=== PATIENT | female | born 1945 | race Caucasian/White ===

== ENCOUNTER 2024-09-04 15:45 | Inpatient (IN) | payer MEDICARE ==
[~2024-09-04] VITALS: Ht 175.3 cm; Wt 113.4 kg
[2024-09-04 16:39] LABS: BASOPHILS # (AUTO) 0.1 X10'3 (0-0.2); BASOPHILS % (AUTO) 0.9 % (0-1); EOSINOPHILS # (AUTO) 0.1 X10'3 (0-0.9); EOSINOPHILS % (AUTO) 1.2 % (0-6); HEMATOCRIT 37.5 % (35.0-45.0); HEMOGLOBIN 11.9 g/dl (12.0-16.0); LYMPHOCYTES # (AUTO) 0.9 X10'3 (1.1-4.8); LYMPHOCYTES % (AUTO) 10.1 % (21-51); MEAN CORPUSCULAR HEMOGLOBIN 25.6 PG (27.0-31.0); MEAN CORPUSCULAR HGB CONC 31.7 g/dL (33.0-36.5); MEAN CORPUSCULAR VOLUME 80.9 FL (78-98); MEAN PLATELET VOLUME 9.3 FL (7.4-10.4); MONOCYTES # (AUTO) 0.6 X10'3 (0-0.9); MONOCYTES % (AUTO) 7.2 % (2-12); NEUTROPHILS % (AUTO) 80.6 % (42-75); PLATELET COUNT 256 X10'3 (140-440); RED BLOOD COUNT 4.64 X10'6 (4.20-5.60); RED CELL DISTRIBUTION WIDTH 21.1 % (11.5-14.5); WHITE BLOOD COUNT 8.8 X10'3 (4.5-11.0)
[2024-09-04 16:44] LABS: APTT 41 SECONDS (22-32); INR 3.1 INR; PROTHROMBIN TIME 29.5 SECONDS (9.0-12.0)
[2024-09-04 16:46] LABS: ALANINE AMINOTRANSFERASE 27 U/L (12-78); ALBUMIN 3.4 G/DL (3.4-5.0); ALBUMIN/GLOBULIN RATIO 0.8 (1.1-1.5); ANION GAP 8 (8-16); ASPARTATE AMINO TRANSFERASE 19 U/L (10-37); BLOOD UREA NITROGEN 26 MG/DL (7-18); BUN/CREATININE RATIO 22.8 (10.0-20.0); CALCIUM 8.8 MG/DL (8.5-10.1); CHLORIDE 104 MMOL/L (99-107); CREATININE 1.14 MG/DL (0.40-0.90); GLUCOSE 104 MG/DL (70-104); POTASSIUM 3.8 MMOL/L (3.5-5.1); SODIUM 139 MMOL/L (135-145); TOTAL PROTEIN 7.8 G/DL (6.4-8.2); eCRCL 43 ML/MIN; eGFR 46 ML/MIN
[2024-09-04 16:47] LABS: ALKALINE PHOSPHATASE 145 IU/L (46-116)
[2024-09-04 16:53] LABS: PRO BRAIN NATRIURETIC PEPTIDE 702 PG/ML (0-450)
[2024-09-04 17:04] LABS: ANISOCYTOSIS 3+; ELLIPTOCYTES FEW; PLATELET ESTIMATE NORMAL; STOMATOCYTES FEW
[2024-09-04] MEDS ORDERED: acetaminophen 325mg tablet PO PRN ×2 (18:05)
[2024-09-04] MEDS ORDERED: magnesium sulf-water 2g/50mL 50 ML IV PRN (18:05)
[2024-09-04] MEDS ORDERED: magnesium sulf-water 4G/100mL 100 ML IV PRN (18:05)
[2024-09-04] MEDS ORDERED: magnesium hydroxide 30ml (MOM) UD suspension PO PRN (18:05)
[2024-09-04] MEDS ORDERED: potassium Cl 20 mEq SR tablet PO PRN (18:05)
[2024-09-04] MEDS ORDERED: mag hydrox/Alum hydrox/simeth 30ml oral suspension PO PRN (18:05)
[2024-09-04] MEDS ORDERED: ondansetron/PF 4mg/2ml inj IV PRN (18:05)
[2024-09-04] MEDS: morphine 2 MG/ML inj. syringe IV ONE (18:06)
[2024-09-04] MEDS: furosemide 10 MG/1 ML 10ml inj IV ONE (18:07)
[2024-09-04] MEDS: PERFLUTREN PROTEIN-A MICROSPHR (Optison) 0.22 MG/ML 3ML VIAL IV ONE (18:25)
[2024-09-04] MEDS ORDERED: iohexol 350MG/ML 100ml bottle IV ONE (19:02)
[2024-09-04 19:34] LABS: URINE AMPHETAMINE SCREEN NEGATIVE (Neg); URINE BARBITUATE SCREEN NEGATIVE (Neg); URINE BENZODIAZEPINES SCREEN NEGATIVE (Neg); URINE CANNABINOID SCREEN NEGATIVE (Neg); URINE COCAINE SCREEN NEGATIVE (Neg); URINE METHADONE SCREEN NEGATIVE (Neg); URINE OPIATE SCREEN POSITIVE (Neg); URINE PHENCYCLIDINE SCREEN NEGATIVE (Neg)
[2024-09-04 19:36] LABS: CHOL/HDL RATIO 3.8 (0.00-4.99); CHOLESTEROL 182 MG/DL (0-200); HDL CHOLESTEROL 48 MG/DL (35-60); LDL CHOLESTEROL 107 MG/DL (50-100); TRIGLYCERIDES 96 MG/DL (20-135)
[2024-09-04 19:38] LABS: HEMOGLOBIN A1C 6.9 % (4.5-6.2)
[2024-09-04] MEDS: K and/or MAG REPLACEMENT MC SCH (20:00)
[2024-09-04] MEDS ORDERED: apixaban 5mg tablet PO SCH (20:00)
[2024-09-04] MEDS: docusate sod 100mg capsule PO SCH (20:00)
[2024-09-04] MEDS: furosemide 40mg/4ml inj IV SCH (21:01)
[2024-09-04] MEDS: CefTRIAXone 2gm/D5W 50ml BAG 50 ML IV SCH (21:03)
[2024-09-04] MEDS: lisinopril 5mg tablet PO SCH (21:04)
[2024-09-05 02:55] LABS: BASOPHILS # (AUTO) 0.1 X10'3 (0-0.2); BASOPHILS % (AUTO) 1.2 % (0-1); EOSINOPHILS # (AUTO) 0.1 X10'3 (0-0.9); EOSINOPHILS % (AUTO) 1.4 % (0-6); HEMOGLOBIN 12.3 g/dl (12.0-16.0); LYMPHOCYTES % (AUTO) 10.6 % (21-51); MEAN CORPUSCULAR HEMOGLOBIN 25.2 PG (27.0-31.0); MEAN CORPUSCULAR HGB CONC 31.4 g/dL (33.0-36.5); MEAN CORPUSCULAR VOLUME 80.4 FL (78-98); MEAN PLATELET VOLUME 8.9 FL (7.4-10.4); MONOCYTES # (AUTO) 0.7 X10'3 (0-0.9); MONOCYTES % (AUTO) 7.4 % (2-12); NEUTROPHILS # (AUTO) 7.2 X10'3 (1.8-7.7); NEUTROPHILS % (AUTO) 79.4 % (42-75); PLATELET COUNT 245 X10'3 (140-440); RED BLOOD COUNT 4.86 X10'6 (4.20-5.60); RED CELL DISTRIBUTION WIDTH 20.6 % (11.5-14.5); WHITE BLOOD COUNT 9.1 X10'3 (4.5-11.0)
[2024-09-05 03:14] LABS: ALANINE AMINOTRANSFERASE 24 U/L (12-78); ALBUMIN 3.4 G/DL (3.4-5.0); ALBUMIN/GLOBULIN RATIO 0.8 (1.1-1.5); ALKALINE PHOSPHATASE 137 IU/L (46-116); ANION GAP 5 (8-16); ASPARTATE AMINO TRANSFERASE 24 U/L (10-37); BILIRUBIN,TOTAL 0.8 MG/DL (0.1-1.0); BLOOD UREA NITROGEN 24 MG/DL (7-18); BUN/CREATININE RATIO 19.7 (10.0-20.0); CALCIUM 8.7 MG/DL (8.5-10.1); CHLORIDE 100 MMOL/L (99-107); CREATININE 1.22 MG/DL (0.40-0.90); GLUCOSE 119 MG/DL (70-104); POTASSIUM 3.2 MMOL/L (3.5-5.1); SODIUM 138 MMOL/L (135-145); TOTAL CARBON DIOXIDE 32.6 MMOL/L (24-32); TOTAL PROTEIN 7.9 G/DL (6.4-8.2); eCRCL 40 ML/MIN; eGFR 43 ML/MIN
[2024-09-05 05:18] LABS: ANISOCYTOSIS 3+; ELLIPTOCYTES FEW; HYPOCHROMASIA 1+; PLATELET ESTIMATE NORMAL; POLYCHROMASIA 1+; STOMATOCYTES FEW
[2024-09-05] MEDS ORDERED: DEXTROSE 15 GM of carb/4 tabs (each vial/BOTTLE has 4 tablets) PO PRN ×2 (07:15)
[2024-09-05] MEDS ORDERED: dextrose 50%-water 50ml dispensing syringe IV PRN ×2 (07:15)
[2024-09-05] MEDS ORDERED: glucagon, human recombinant 1mg kit SUBCUT PRN (07:15)
[2024-09-05] MEDS ORDERED: metoprolol succinate 25mg (24-HOUR) SR. Tablet PO SCH (08:00)
[2024-09-05] MEDS: metoprolol succinate 25mg (24-HOUR) SR. Tablet PO SCH (08:22)
[2024-09-05] MEDS: lisinopril 5mg tablet PO SCH (08:29)
[2024-09-05] MEDS: potassium Cl 40MEQ/1/2NS 520ml 520 ML IV PRN (10:35)
[2024-09-05 13:13] LABS: INR 2.5 INR; PROTHROMBIN TIME 24.2 SECONDS (9.0-12.0)
[2024-09-05 15:00] VITALS: BP 142/64; PULSE 73; RESP 15; TEMP 98.6; O2SAT 99
[2024-09-05] MEDS: morphine 2 MG/ML inj. syringe IV PRN (17:27)
[2024-09-05 18:00] VITALS: BP 147/89; PULSE 76; RESP 18; TEMP 97.6; O2SAT 98
[2024-09-05 20:00] VITALS: RESP 18; O2SAT 98
[2024-09-05] MEDS: warfarin 2.5mg tablet PO ONE (21:46)
[2024-09-05 22:00] VITALS: BP 118/74; PULSE 75; RESP 16; TEMP 97.1; O2SAT 98
[2024-09-06] VITALS (9 sets, daily range): BP systolic 103–157; BP diastolic 58–79; PULSE 75–84; RESP 10–20; TEMP 97–98.2; O2SAT 96–99
[2024-09-06 06:57] LABS: INR 2.2 INR; PROTHROMBIN TIME 21.5 SECONDS (9.0-12.0)
[2024-09-06 07:19] LABS: ALANINE AMINOTRANSFERASE 18 U/L (12-78); ALBUMIN/GLOBULIN RATIO 0.7 (1.1-1.5); ALKALINE PHOSPHATASE 122 IU/L (46-116); ANION GAP 8 (8-16); ASPARTATE AMINO TRANSFERASE 21 U/L (10-37); BILIRUBIN,TOTAL 0.8 MG/DL (0.1-1.0); BLOOD UREA NITROGEN 23 MG/DL (7-18); BUN/CREATININE RATIO 20.2 (10.0-20.0); CALCIUM 8.6 MG/DL (8.5-10.1); CHLORIDE 98 MMOL/L (99-107); CREATININE 1.14 MG/DL (0.40-0.90); GLUCOSE 120 MG/DL (70-104); MAGNESIUM 1.9 MG/DL (1.5-2.4); POTASSIUM 3.1 MMOL/L (3.5-5.1); SODIUM 139 MMOL/L (135-145); TOTAL CARBON DIOXIDE 33.1 MMOL/L (24-32); TOTAL PROTEIN 7.3 G/DL (6.4-8.2); eCRCL 43 ML/MIN; eGFR 46 ML/MIN
[2024-09-06 07:20] LABS: BASOPHILS # (AUTO) 0.1 X10'3 (0-0.2); BASOPHILS % (AUTO) 0.5 % (0-1); EOSINOPHILS # (AUTO) 0.1 X10'3 (0-0.9); EOSINOPHILS % (AUTO) 0.6 % (0-6); HEMATOCRIT 38.9 % (35.0-45.0); HEMOGLOBIN 12.1 g/dl (12.0-16.0); LYMPHOCYTES # (AUTO) 0.6 X10'3 (1.1-4.8); LYMPHOCYTES % (AUTO) 4.4 % (21-51); MEAN CORPUSCULAR HEMOGLOBIN 24.9 PG (27.0-31.0); MEAN CORPUSCULAR HGB CONC 31.2 g/dL (33.0-36.5); MEAN CORPUSCULAR VOLUME 79.9 FL (78-98); MEAN PLATELET VOLUME 9.5 FL (7.4-10.4); MONOCYTES # (AUTO) 0.7 X10'3 (0-0.9); MONOCYTES % (AUTO) 5.2 % (2-12); NEUTROPHILS # (AUTO) 11.3 X10'3 (1.8-7.7); NEUTROPHILS % (AUTO) 89.3 % (42-75); PLATELET COUNT 217 X10'3 (140-440); RED BLOOD COUNT 4.87 X10'6 (4.20-5.60); RED CELL DISTRIBUTION WIDTH 20.6 % (11.5-14.5); WHITE BLOOD COUNT 12.7 X10'3 (4.5-11.0)
[2024-09-06] MEDS: potassium Cl 20 mEq SR tablet PO PRN (08:22)
[2024-09-06] MEDS: furosemide 40mg/4ml inj IV SCH (16:00)
[2024-09-06] MEDS: spironolactone 25 MG tablet PO SCH (17:39)
[2024-09-06] MEDS: EMPAGLIFLOZIN 10 MG TABLET PO SCH (17:40)
[2024-09-06] MEDS ORDERED: PREG150C47 PO (19:16)
[2024-09-06] MEDS ORDERED: ROSU10TA72 PO (19:16)
[2024-09-06] MEDS ORDERED: DULO60CA65 PO (19:16)
[2024-09-06] MEDS ORDERED: METO-395 PO (19:16)
[2024-09-06] MEDS ORDERED: WARF-55 (19:16)
[2024-09-06] MEDS ORDERED: AMLO2.5T5 PO (19:16)
[2024-09-06] MEDS ORDERED: LEVO75TA7 PO (19:16)
[2024-09-06] MEDS ORDERED: FURO-149 PO (19:18)
[2024-09-06] MEDS: atorvastatin 20mg tablet PO SCH (20:18)
[2024-09-06] MEDS: warfarin 3mg tablet PO ONE (20:19)
[2024-09-07] VITALS (8 sets, daily range): BP systolic 112–143; BP diastolic 51–75; PULSE 79–95; RESP 12–18; TEMP 96.8–98.8; O2SAT 92–97
[2024-09-07 05:59] LABS: BASOPHILS # (AUTO) 0.1 X10'3 (0-0.2); BASOPHILS % (AUTO) 0.5 % (0-1); EOSINOPHILS # (AUTO) 0.1 X10'3 (0-0.9); EOSINOPHILS % (AUTO) 0.8 % (0-6); HEMATOCRIT 39.9 % (35.0-45.0); HEMOGLOBIN 12.4 g/dl (12.0-16.0); LYMPHOCYTES # (AUTO) 0.8 X10'3 (1.1-4.8); LYMPHOCYTES % (AUTO) 7.4 % (21-51); MEAN CORPUSCULAR HEMOGLOBIN 24.8 PG (27.0-31.0); MEAN CORPUSCULAR HGB CONC 31.1 g/dL (33.0-36.5); MEAN CORPUSCULAR VOLUME 79.8 FL (78-98); MEAN PLATELET VOLUME 8.8 FL (7.4-10.4); MONOCYTES # (AUTO) 0.7 X10'3 (0-0.9); MONOCYTES % (AUTO) 5.9 % (2-12); NEUTROPHILS # (AUTO) 9.4 X10'3 (1.8-7.7); NEUTROPHILS % (AUTO) 85.4 % (42-75); PLATELET COUNT 240 X10'3 (140-440); RED CELL DISTRIBUTION WIDTH 20.3 % (11.5-14.5); WHITE BLOOD COUNT 11.1 X10'3 (4.5-11.0)
[2024-09-07 06:12] LABS: PROTHROMBIN TIME 19.8 SECONDS (9.0-12.0)
[2024-09-07 06:14] LABS: ANION GAP 5 (8-16); BILIRUBIN,TOTAL 0.7 MG/DL (0.1-1.0); BLOOD UREA NITROGEN 26 MG/DL (7-18); BUN/CREATININE RATIO 20.5 (10.0-20.0); CALCIUM 8.6 MG/DL (8.5-10.1); CHLORIDE 98 MMOL/L (99-107); CREATININE 1.27 MG/DL (0.40-0.90); GLUCOSE 124 MG/DL (70-104); MAGNESIUM 1.7 MG/DL (1.5-2.4); POTASSIUM 3.2 MMOL/L (3.5-5.1); SODIUM 141 MMOL/L (135-145); TOTAL CARBON DIOXIDE 38.1 MMOL/L (24-32); eCRCL 38 ML/MIN; eGFR 41 ML/MIN
[2024-09-07 06:15] LABS: ALANINE AMINOTRANSFERASE 13 U/L (12-78); ALBUMIN 3.1 G/DL (3.4-5.0); ALBUMIN/GLOBULIN RATIO 0.7 (1.1-1.5); ALKALINE PHOSPHATASE 121 IU/L (46-116); ASPARTATE AMINO TRANSFERASE 16 U/L (10-37); TOTAL PROTEIN 7.4 G/DL (6.4-8.2)
[2024-09-07] MEDS: morphine 2 MG/ML inj. syringe IV PRN (07:32)
[2024-09-07 07:52] LABS: ANISOCYTOSIS 3+; MICROCYTOSIS 1+; PLATELET ESTIMATE NORMAL
[2024-09-07 07:56] LABS: HYPOCHROMASIA 1+
[2024-09-07] MEDS: pregabalin 75mg capsule PO SCH (12:08)
[2024-09-07] MEDS ORDERED: metoprolol succinate 25mg (24-HOUR) SR. Tablet PO SCH (14:00)
[2024-09-07] MEDS: warfarin 5mg tablet PO ONE (21:40)
[2024-09-08 02:00] VITALS: BP 139/56; PULSE 85; RESP 12; TEMP 97.1; O2SAT 98
[2024-09-08 06:00] VITALS: BP 153/66; PULSE 71; RESP 17; TEMP 97; O2SAT 94
[2024-09-08 07:07] LABS: BASOPHILS # (AUTO) 0.1 X10'3 (0-0.2); BASOPHILS % (AUTO) 0.6 % (0-1); EOSINOPHILS # (AUTO) 0.1 X10'3 (0-0.9); EOSINOPHILS % (AUTO) 1.2 % (0-6); HEMATOCRIT 42.3 % (35.0-45.0); HEMOGLOBIN 13.3 g/dl (12.0-16.0); LYMPHOCYTES # (AUTO) 1.1 X10'3 (1.1-4.8); LYMPHOCYTES % (AUTO) 10.4 % (21-51); MEAN CORPUSCULAR HEMOGLOBIN 24.9 PG (27.0-31.0); MEAN CORPUSCULAR HGB CONC 31.5 g/dL (33.0-36.5); MEAN CORPUSCULAR VOLUME 79.1 FL (78-98); MONOCYTES # (AUTO) 0.8 X10'3 (0-0.9); MONOCYTES % (AUTO) 7.1 % (2-12); NEUTROPHILS # (AUTO) 8.6 X10'3 (1.8-7.7); NEUTROPHILS % (AUTO) 80.7 % (42-75); PLATELET COUNT 245 X10'3 (140-440); RED BLOOD COUNT 5.34 X10'6 (4.20-5.60); RED CELL DISTRIBUTION WIDTH 21.3 % (11.5-14.5); WHITE BLOOD COUNT 10.7 X10'3 (4.5-11.0)
[2024-09-08 07:13] LABS: INR 1.9 INR
[2024-09-08 08:00] VITALS: RESP 17; O2SAT 94
[2024-09-08] MEDS ORDERED: non-formulary drug (Rosuvastatin Calcium 1 TAB) PO SCH (08:00)
[2024-09-08] MEDS: amLODIPine 2.5mg tablet PO SCH (08:43)
[2024-09-08] MEDS: levoTHYROXINE 75mcg tablet PO SCH (08:44)
[2024-09-08] MEDS: metoprolol succinate 25mg (24-HOUR) SR. Tablet PO SCH (08:56)
[2024-09-08] MEDS: duloxetine 30mg CAPSULE.DR PO SCH (09:08)
[2024-09-08 09:28] LABS: ALANINE AMINOTRANSFERASE 14 U/L (12-78); ALBUMIN 3.2 G/DL (3.4-5.0); ALBUMIN/GLOBULIN RATIO 0.6 (1.1-1.5); ALKALINE PHOSPHATASE 124 IU/L (46-116); ANION GAP 7 (8-16); BILIRUBIN,TOTAL 0.8 MG/DL (0.1-1.0); BLOOD UREA NITROGEN 37 MG/DL (7-18); BUN/CREATININE RATIO 21.9 (10.0-20.0); CALCIUM 9.1 MG/DL (8.5-10.1); CHLORIDE 98 MMOL/L (99-107); CREATININE 1.69 MG/DL (0.40-0.90); GLUCOSE 116 MG/DL (70-104); MAGNESIUM 2.1 MG/DL (1.5-2.4); SODIUM 139 MMOL/L (135-145); TOTAL CARBON DIOXIDE 34.4 MMOL/L (24-32); TOTAL PROTEIN 8.3 G/DL (6.4-8.2); eCRCL 29 ML/MIN; eGFR 29 ML/MIN
[2024-09-08 09:29] LABS: ASPARTATE AMINO TRANSFERASE 38 U/L (10-37)
[2024-09-08 11:00] VITALS: BP 99/48; PULSE 84; RESP 10; TEMP 97.6; O2SAT 96
[2024-09-08] MEDS ORDERED: warfarin 5mg tablet PO ONE (21:00)
== END 2024-09-08 15:59 | DRG 602 ==
LOC: ER 15:46 → ED HOLD 18:10 → PCU 3S 09-05 14:26
PROVIDERS: ADMIT Nurse Practitioner Family; ATTEND Nurse Practitioner Family
PROC: B32T1ZZ Computerized Tomography (CT Scan) of Left Pulmonary Artery using Low Osmolar Contrast (ICD-10-PCS; principal; 2024-09-04)
PROC: B3201ZZ Computerized Tomography (CT Scan) of Thoracic Aorta using Low Osmolar Contrast (ICD-10-PCS; 2024-09-04)
PROC: B32S1ZZ Computerized Tomography (CT Scan) of Right Pulmonary Artery using Low Osmolar Contrast (ICD-10-PCS; 2024-09-04)
DX: L03.116 Cellulitis of left lower limb (principal); I50.23 Acute on chronic systolic (congestive) heart failure; I13.0 Hypertensive heart and chronic kidney disease with heart failure and stage 1 through stage 4 chronic kidney disease, or unspecified chronic kidney disease; J44.1 Chronic obstructive pulmonary disease with (acute) exacerbation; I48.20 Chronic atrial fibrillation, unspecified; N17.9 Acute kidney failure, unspecified; L03.115 Cellulitis of right lower limb; N18.9 Chronic kidney disease, unspecified; G62.9 Polyneuropathy, unspecified; R09.02 Hypoxemia; L97.519 Non-pressure chronic ulcer of other part of right foot with unspecified severity; Z91.148 Patient's other noncompliance with medication regimen for other reason; Z90.710 Acquired absence of both cervix and uterus; Z90.49 Acquired absence of other specified parts of digestive tract; Z79.01 Long term (current) use of anticoagulants
CPT/HCPCS: 36415; 70450; 71045; 71275; 80053; 80061; 80305; 82948; 83036; 83605; 83735; 83880; 84145; 84484; 85008; 85025; 85610; 85730; 93005; 93306; 96374; 96375; 97110; 97161; 97530; 99285; A4615; A6213; G0378; J0696; J1940; J2270; J3480; J7040; Q9967